=== PATIENT | male | born 1945 | race Caucasian/White ===

== ENCOUNTER → 2016-07-25 | Outpatient (CLI) | payer OTHER | LOC: CT 07-20 08:00 | DX: C18.9 Malignant neoplasm of colon, unspecified (principal); R91.8 Other nonspecific abnormal finding of lung field; R59.1 Generalized enlarged lymph nodes; R91.1 Solitary pulmonary nodule | CPT/HCPCS: 71250 ==

== ENCOUNTER → 2020-08-26 | Outpatient (CLI) | payer OTHER ==
[~2020-08-26] MED LIST: ASPIR 8181 MG PO; AVODART 0.5 MG0.5 MG PO; BACTRIM DS TAB1 EACH PO; BISOPROLOL-HCT1 EAC2 PO; D3 PO; FLOMAX0.4 MG PO; LIPITOR TAB 1010 MG PO; LYRICA150 MG PO; NIACIN ER500 MG PO; NITROSTAT0.4 MG SL; OMEGA 3 1,0001 EACH PO; PRINIVIL5 MG PO; SYNTHROID125 MCG PO
[2020-08-26 08:31] LABS: BUN/CREATININE RATIO 26 (0-10)
== END ==
LOC: ECHO 07:33
DX: I25.9 Chronic ischemic heart disease, unspecified (principal); E11.9 Type 2 diabetes mellitus without complications; I35.8 Other nonrheumatic aortic valve disorders
CPT/HCPCS: ECHO; 36415; 80053; 84439; 84443; 84481; 93306

== ENCOUNTER → 2020-10-21 | Outpatient (CLI) | payer OTHER | LOC: KOH-I 15:09 | DX: M25.512 Pain in left shoulder (principal); M19.012 Primary osteoarthritis, left shoulder | CPT/HCPCS: 73030 ==